=== PATIENT | male | born 1935 | race Caucasian/White ===

== ENCOUNTER 2017-08-02 22:25 | Emergency (ER) | payer MEDICARE, BC ==
[2017-08-02] MEDS ORDERED: Acetaminophen/HYDROcodone 325-5 MG Tab PO ONE ×2 (22:26)
[2017-08-02 22:31] VITALS: BP 140/95
[2017-08-02] MEDS ORDERED: Lidocaine 2% 100 MG/5 ML Syringe ONE (22:42)
--- NOTE | 2017-08-02 22:43 | EDM.PDOC ---
ED HPI GENERAL MEDICAL PROBLEM - General Chief Complaint: Genitourinary Problem Stated Complaint: voiding small amounts after catheter removed Time Seen by Provider: 08/02/17 22:37 - History of Present Illness INITIAL COMMENTS - FREE TEXT/NARRATIVE: Zurdo is an 82 year old male who presents to the ER with complaints of urinary retention. He reports he was seen in the clinic here last Wednesday after being unable to urinate. Multiple attempts were made at catheterization without success, so patient was sent via [facility] to [facility]. Records from [facility] are unobtainable at this time. Patient does not know what all was done in [facility]. He reports he "couldn't understand the doctors." He does report that he had continuous bladder irrigation going for a majority of his 5 day hospital stay. He reports that he saw Dr. Lambert (urology) in [place] earlier today. He reports he did cystoscopy and removed his catheter. He reports he did not do a voiding trial. He reports Dr. Lambert "didn't really tell him what was going on" just told him to follow up on August 28. 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 Patient does report surgery "a number of years ago" where they "removed part of his prostate. He reports that since about 11 am today, he has voided "very small amounts." He does complain of discomfort in his pelvic area. He reports the urge to void, but inability to pass urine. He does report he did pass a few clots earlier today following catheter removal. Denies any fever, chills, abdominal pain, constipation, diarrhea, flank pain. Onset: Today Onset Date: 08/02/17 Onset Time: 11:00 Duration: Getting Worse Location: Reports: Pelvis Quality: Reports: Pressure Severity: Moderate Improves with: Reports: None Associated Symptoms: Reports: Other (inability to urinate). Denies: Confusion, Chest Pain, Cough, cough w sputum, Diaphoresis, Fever/Chills, Headaches, Loss of Appetite, Malaise, Nausea/Vomiting, Rash, Seizure, Shortness of Breath, Syncope, Weakness Bladder Pain Score (Numeric/FACES): 3 - Related Data Allergies Allergy/AdvReac Type Severity Reaction Status Date / Time No Known Allergies Allergy Verified 09/10/15 15:49 Home Meds: Home Meds Aspirin [Halfprin] 81 mg PO DAILY 09/10/15 [History] Metoprolol Succinate [Toprol XL] 25 mg PO DAILY 09/10/15 [History] Moexipril/Hydrochlorothiazide [Moexipril-HCTZ 7.5-12.5 MG] 7.5 mg PO DAILY 09/10 [History] Rosuvastatin [Crestor] 5 mg PO DAILY 09/10/15 [History] Triamterene/Hydrochlorothiazid [Triamterene-HCTZ 37.5-25 MG] 37.5 mg PO DAILY [History] Warfarin [Coumadin] 5 mg PO ASDIRECTED 09/10/15 [History] amLODIPine Besylate [Amlodipine Besylate] 10 mg PO DAILY 09/10/15 [History] Allopurinol [Zyloprim] 100 mg PO DAILY 08/02/17 [History] Aspirin 81 mg PO DAILY 08/02/17 [History] Cholecalciferol (Vitamin D3) [Vitamin D3] 5,000 unit PO DAILY 08/02/17 [History] Ciprofloxacin [Ciprofloxacin HCl] 250 mg PO BID 08/02/17 [History] Colchicine 0.6 mg PO ASDIRECTED 08/02/17 [History] Finasteride [Proscar] 5 mg PO DAILY 08/02/17 [History] Metoprolol Succinate [Toprol XL] 25 mg PO DAILY 08/02/17 [History] Polyethylene Glycol 3350 [MiraLAX] 1 packet PO DAILY PRN 08/02/17 [History] Rosuvastatin Calcium 5 mg PO DAILY 08/02/17 [History] Tamsulosin [Flomax] 0.4 mg PO BEDTIME 08/02/17 [History] Urea [Urea 20% Crm] 1 applic TOP DAILY 08/02/17 [History] Zolpidem [Ambien] 10 mg PO BEDTIME PRN 08/02/17 [History] ED ROS GENERAL - Review of Systems Review Of Systems: ROS reveals no pertinent complaints other than HPI. Constitutional: Denies: Fever, Chills, Weakness, Fatigue, Decreased Appetite HEENT: Reports: No Symptoms Respiratory: Reports: No Symptoms Cardiovascular: Reports: No Symptoms : Reports: Dysuria, Hematuria, Pain, Urinary Retention. Denies: Discharge, Flank Pain, Frequency, Incontinence, Urgency Musculoskeletal: Reports: No Symptoms Skin: Reports: No Symptoms Neurological: Reports: No Symptoms ED EXAM, RENAL/ - Physical Exam Exam: See Below Exam Limited By: No Limitations General Appearance: Alert, WD/WN, Moderate Distress Head: Atraumatic, Normocephalic Neck: Normal Inspection, Supple, Non-Tender, Full Range of Motion Respiratory/Chest: No Respiratory Distress, Lungs Clear, Normal Breath Sounds, No Accessory Muscle Use, Chest Non-Tender Cardiovascular: Normal Peripheral Pulses, Regular Rate, Rhythm, No Edema, No Gallop, No JVD, No Murmur, No Rub GI/Abdominal: Normal Bowel Sounds, Soft, Tender (lower abdomen) (Male) Exam: Normal Inspection, Suprapubic Fullness, Other (bladder distended ). No: Scrotal Swelling, Scrotum Tenderness (L), Scrotum Tenderness (R) Back Exam: Normal Inspection, Full Range of Motion. No: CVA Tenderness (L), CVA Tenderness (R) Extremities: Normal Inspection, Normal Range of Motion, Non-Tender, Normal Capillary Refill, No Pedal Edema Neurological: Alert, Oriented, CN II-XII Intact, Normal Cognition, Normal Gait, Normal Reflexes, No Motor/Sensory Deficits Psychiatric: Anxious Skin Exam: Warm, Dry, Intact, Normal Color, No Rash Course - Vital Signs Last Recorded V/S: Last Vital Signs Temp 98.0 F 08/02/17 22:26 Pulse 95 08/02/17 22:26 Resp 20 08/02/17 22:26 BP 140/95 H 08/02/17 22:26 Pulse Ox 99 08/02/17 22:26 - Orders/Labs/Meds Orders: Active Orders 24 hr Category Date Time Status Insert Jara Catheter [Insert Urinary Catheter] [OM.PC] Care 08/02/17 23:15 Ordered Q24H Urinary Catheter Assessment [RC] ASDIRECTED Care 08/02/17 23:26 Active Meds: Medications Discontinued Medications Generic Name Dose Route Start Last Admin Trade Name Emre PRN Reason Stop Dose Admin Hydrocodone Bitart/Acetaminophen 1 packet 08/02/17 23:52 08/02/17 23:54 Take Home: Acetaminophen/Hydrocod, 2 Tab Pack PO 08/02/17 23:53 1 packet ONETIME ONE Administration Hydrocodone Bitart/Acetaminophen 1 tab 08/02/17 22:26 Gipsy 325-5 Mg PO 08/02/17 22:27 .STK-MED ONE Fentanyl 50 mcg 08/02/17 22:52 08/02/17 22:59 Sublimaze IM 08/02/17 22:53 50 mcg ONETIME ONE Administration Lidocaine HCl Confirm 08/02/17 22:42 08/02/17 23:02 Xylocaine 2% Administered 08/02/17 22:43 Not Given Dose 100 mg .ROUTE .STK-MED ONE Lidocaine HCl 5 ml 08/02/17 22:52 08/02/17 23:01 Xylocaine 2% Jelly TOP 08/02/17 22:53 1 applic ONETIME ONE Administration Lidocaine HCl Confirm 08/02/17 22:46 08/02/17 23:02 Xylocaine 2% Jelly Administered 08/02/17 22:47 Not Given Dose 5 ml .ROUTE .STK-MED ONE - Re-Assessments/Exams Free Text/Narrative Re-Assessment/Exam: Patient medicated with 50 mcg fentanyl. Lidocane inserted into urethra. Attempted to place 22 F coude catheter without success. Unable to get urine. Discussed that likely needed urology speciality as before. Discussed the emergent need to empty bladder. [place] [facility] [place] if [place] had urologist rehabilitation therapist. Spoke with ER, who reported they do have urologist rehabilitation therapist, but patient would have to be seen in their ER prior to calling in urologst. I feel this would be our best option as it is within closest proximity. Patient's nephew is present with patient who reports he will drive him there. Discussed risk vs benefits of transfer via private vehicle with patient and nephew. Risks of transfer include vehicle crash, worsening of condition enroute, to include bladder rupture. Benefits of transfer include specialized urology care. Risks of nontransfer include worsening of condition, including bladder rupture. Benefits of transfer include familiar environment, close to home. Patient and nephew verbalized understanding. Will send patient [place] [facility] [place]. Called [facility] and updated that patient would be coming. At time of departure, patient in stable condition. Pain medication administered prior to departure. Pain well controlled. VSS. PLEASE SEE NURSES DOCUMENTATION FOR PMH, SH, FH. Departure - Departure Time of Disposition: 23:40 Disposition: DC/Tfer to [facility] Clinical Impression: BPH with urinary obstruction, Gross hematuria - Discharge Information Instructions: Benign Prostatic Hyperplasia Referrals: Amol Cee MD [Primary Care Provider] - Forms: ED Department Discharge Additional Instructions: Patient will go to [facility], who have a urologist rehabilitation therapist Spoke with ER and notified that patient would be coming Patient needs emergent catheterization - Problem List & Annotations (1) BPH with urinary obstruction SNOMED Code(s): 594017934 Code(s): N40.1 - BENIGN PROSTATIC HYPERPLASIA WITH LOWER URINARY TRACT SYMP; N13.8 - OTHER OBSTRUCTIVE AND REFLUX UROPATHY Status: Acute (2) Gross hematuria SNOMED Code(s): 314814958 Code(s): R31.0 - GROSS HEMATURIA Status: Acute - My Orders Last 24 Hours: My Active Orders 08/02/17 23:15 Insert Jara Catheter [Insert Urinary Catheter] [OM.PC] Q24H 08/02/17 23:26 Urinary Catheter Assessment [RC] ASDIRECTED - Assessment/Plan Last 24 Hours: My Active Orders 08/02/17 23:15 Insert Jara Catheter [Insert Urinary Catheter] [OM.PC] Q24H 08/02/17 23:26 Urinary Catheter Assessment [RC] ASDIRECTED
[2017-08-02] MEDS ORDERED: Lidocaine 2% Jelly 5 ML Tube ONE (22:46)
[2017-08-02] MEDS ORDERED: Lidocaine 2% Jelly 5 ML Tube TOP ONE (22:52)
[2017-08-02] MEDS ORDERED: fentaNYL 100 MCG/2 ML SDV IM ONE (22:52)
[2017-08-02] MEDS ORDERED: Take Home: Acetaminophen/HYDROcodone 325-5 MG, 2 Tab Pack PO ONE (23:52)
== END 2017-08-03 00:02 | disposition critical access hospital (66) ==
LOC: CC.ED 22:25 → EDBD 22:25 → MERGE 22:25 → CC.ED 08-03 00:02
DX: N40.1 Benign prostatic hyperplasia with lower urinary tract symptoms (principal); N13.8 Other obstructive and reflux uropathy; R31.0 Gross hematuria; Z79.82 Long term (current) use of aspirin; Z79.899 Other long term (current) drug therapy; Z79.01 Long term (current) use of anticoagulants
CPT/HCPCS: 51702; 96372; 99284; A9270; J3010

== ENCOUNTER 2017-11-02 21:10 | Emergency (ER) | payer MEDICARE, BC ==
[2017-11-02 21:28] VITALS: BP 140/96
--- NOTE | 2017-11-02 22:08 | EDM.PDOC ---
ED HPI GENERAL MEDICAL PROBLEM - General Chief Complaint: Genitourinary Problem Stated Complaint: catheter not working Time Seen by Provider: 11/02/17 21:35 Source of Information: Reports: Patient History Limitations: Reports: No Limitations - History of Present Illness INITIAL COMMENTS - FREE TEXT/NARRATIVE: Zurdo is an 82 yo male who presents to the ER via private vehicle with concerns of his urinary catheter not working. He states he was seen by his urologist at the [facility] with concerns of unable to void. Emergency room staff attempted to put the catheter in a couple times last night without any success. They ended up calling in his urologist who ended up placing it last night. Rui states he was fine through out the night up until this morning. Admits around 8 oclock he started to feels he needed to go and was unable to in the catheter. He felt the tube had got pulled out possibly thru the night and he pushed it back in. States he then started to get urine in the catheter bag. States he did fine up until this evening again and was unable to get any urine in the catheter bag. Started to get a lot of discomfort and felt he better come in to the ER. Upon arrival to the ER tonight his clothes became soiled in urine as it was leaking around the catheter with nothing in the bag. Nursing staff initially flushed the catheter and she states clear yellow urine returned. She stated she continued to flush and no longer any urine would return. It started leaking around the catheter again. She stated she then deflated the balloon and removed it with no clots or urine. She states he stood at the bedside and was unable to void on his own roughly 150ml of bloody urine with clot. He did have another episode of voiding bloody urine, again roughly 150ml's. He denies any discomfort or pressure upon my arrival. States he is feeling a lot better. Bladder Pain Score (Numeric/FACES): 3 - Related Data Allergies Allergy/AdvReac Type Severity Reaction Status Date / Time No Known Allergies Allergy Verified 11/02/17 21:29 Home Meds: Home Meds Aspirin [Halfprin] 81 mg PO DAILY 09/10/15 [History] Rosuvastatin [Crestor] 5 mg PO DAILY 09/10/15 [History] Triamterene/Hydrochlorothiazid [Triamterene-HCTZ 37.5-25 MG] 37.5 mg PO DAILY [History] Warfarin [Coumadin] 2.5 mg PO ASDIRECTED 09/10/15 [History] Allopurinol [Zyloprim] 100 mg PO DAILY 08/02/17 [History] Cholecalciferol (Vitamin D3) [Vitamin D3] 5,000 unit PO DAILY 08/02/17 [History] Colchicine 0.6 mg PO ASDIRECTED 08/02/17 [History] Metoprolol Succinate [Toprol XL] 50 mg PO DAILY 08/02/17 [History] Polyethylene Glycol 3350 [MiraLAX] 1 packet PO DAILY PRN 08/02/17 [History] Urea [Urea 20% Crm] 1 applic TOP DAILY 08/02/17 [History] Zolpidem [Ambien] 10 mg PO BEDTIME PRN 08/02/17 [History] Past Medical History Cardiovascular History: Reports: Afib, CAD, High Cholesterol, Hypertension Genitourinary History: Reports: BPH, Other (See Below), Retention, Urinary Other Genitourinary History: hematuria Musculoskeletal History: Reports: Arthritis, Gout, Other (See Below), Osteoarthritis Other Musculoskeletal History: bilat bunions Psychiatric History: Reports: Other (See Below) Other Psychiatric History: insomnia - Past Surgical History Male Surgical History: Reports: Prostatectomy Social & Family History - Family History Family Medical History: Noncontributory - Tobacco Use Smoking Status *Q: Never Smoker - Caffeine Use Caffeine Use: Reports: Coffee - Alcohol Use Days Per Week of Alcohol Use: 7 Number of Drinks Per Day: 2 Total Drinks Per Week: 14 - Recreational Drug Use Recreational Drug Use: No ED ROS GENERAL - Review of Systems Review Of Systems: ROS reveals no pertinent complaints other than HPI. Constitutional: Denies: Fever, Chills HEENT: Reports: No Symptoms Respiratory: Reports: No Symptoms Cardiovascular: Reports: No Symptoms GI/Abdominal: Reports: No Symptoms : Reports: Hematuria, Pain, Urinary Retention ED EXAM, RENAL/ - Physical Exam Exam: See Below Exam Limited By: No Limitations General Appearance: Alert, No Apparent Distress Head: Atraumatic, Normocephalic Neck: Normal Inspection, Supple Respiratory/Chest: No Respiratory Distress, Lungs Clear, Normal Breath Sounds, No Accessory Muscle Use Cardiovascular: No Murmur, Irregularly Irregular GI/Abdominal: Normal Bowel Sounds, Soft, Non-Tender, No Organomegaly, No Distention, No Mass Extremities: Normal Inspection, No Pedal Edema Neurological: Alert, Oriented, Normal Cognition, No Motor/Sensory Deficits Psychiatric: Normal Affect, Normal Mood Skin Exam: Warm, Dry, Intact, Normal Color, No Rash Course - Vital Signs Last Recorded V/S: Last Vital Signs Temp 96.0 F 11/02/17 21:20 Pulse 78 11/02/17 21:20 Resp 16 11/02/17 21:20 BP 140/96 H 11/02/17 21:20 Pulse Ox 95 11/02/17 21:20 - Orders/Labs/Meds Labs: Laboratory Tests 11/02/17 11/02/17 11/02/17 Range/Units 21:22 21:22 21:22 WBC 8.8 (5.0-10.0) 10^3/uL RBC 4.87 (4.50-6.00) 10^6/uL Hgb 12.4 L (14.0-18.0) g/dL Hct 38.8 L (40.0-54.0) % MCV 79.7 L (82.0-94.0) fL MCH 25.5 L (27.0-32.0) pg MCHC 32.0 L (33.0-38.0) g/dL RDW Coeff of Bola 18.0 H (11.0-15.0) % Plt Count 257 (150-400) 10^3/uL Neut % (Auto) 79.6 (35-85) % Lymph % (Auto) 12.3 (10-55) % Yancey % (Auto) 7.4 (0-16) % Eos % (Auto) 0.5 (0-5) % Baso % (Auto) 0.2 (0-3) % Neut # (Auto) 7.04 H (1.80-7.00) 10^3/uL Lymph # (Auto) 1.09 (1.00-4.80) 10^3/uL Yancey # (Auto) 0.65 (0.00-0.80) 10^3/uL Eos # (Auto) 0.04 (0.00-0.45) 10^3/uL Baso # (Auto) 0.02 10^3/uL PT 11.2 (9.7-12.3) SEC INR 1.08 (0.92-1.18) Sodium 134 L (136-145) mEq/L Potassium 3.6 (3.5-5.0) mEq/L Chloride 98 (98-106) mEq/L Carbon Dioxide 24 (21-32) mmol/L BUN 29 H (7-18) mg/dL Creatinine 1.5 H (0.7-1.3) mg/dL Est Cr Clr Drug Dosing 37.85 mL/min Estimated GFR (MDRD) 45 L (>=60) mL/min Glucose 113 H (75-99) mg/dL Calcium 9.1 (8.4-10.1) mg/dL Departure - Departure Time of Disposition: 22:09 Disposition: Home, Self-Care 01 Clinical Impression: Urinary retention, Gross hematuria - Discharge Information Instructions: Acute Urinary Retention, Male, [id number], Hematuria, Adult Forms: ED Department Discharge Additional Instructions: Consulted with Dr. Karo barros. 1) If able to continue to void, may go home and a fair amount of water tonight. 2) Advised seeing him in clinic at 8:00 tomorrow morning at [facility]. 3) Recommended if increased pressure/retention/discomfort anytime tonight, he is to go directly to [facility] emergency room and he will come in to evaluate. 4) Return to ER if any concerns at all. - Problem List & Annotations (1) Gross hematuria SNOMED Code(s): 096568071 Code(s): R31.0 - GROSS HEMATURIA Status: Acute Current Visit: Yes (2) Urinary retention SNOMED Code(s): 730425049 Code(s): R33.9 - RETENTION OF URINE, UNSPECIFIED Status: Acute Current Visit: Yes - Problem List Review Problem List Initiated/Reviewed/Updated: Yes - Assessment/Plan Plan: consulted fiorella with Dr. Huddleston in regards to Rui's condition. He advised that Rui may go home tonight if he has no pressure presently. States he is to push fluids tonight and see him in clinic tomorrow morning at 8:00am at [facility]. If he has any increased discomfort tonight and unable to void he is to go directly to [facility] emergency room and Dr. Huddleston will come in to evaluate and place a catheter.
[2017-11-02] MEDS ORDERED: Take Home: Acetaminophen/HYDROcodone 325-5 MG, 2 Tab Pack PO ONE (22:19)
== END 2017-11-02 22:40 | disposition home or self-care (01) ==
LOC: CC.ED 21:10
DX: R33.9 Retention of urine, unspecified (principal); R31.0 Gross hematuria; I10 Essential (primary) hypertension; E78.00 Pure hypercholesterolemia, unspecified; Z79.82 Long term (current) use of aspirin; Z79.899 Other long term (current) drug therapy
CPT/HCPCS: 36415; 80048; 85025; 85610; 99284

== ENCOUNTER 2019-04-19 13:17 | Inpatient (IN) | payer MEDICARE, BC ==
[2019-04-19] MEDS ORDERED: Sodium Chloride 0.9% 10 ML Syringe FLUSH PRN (17:11)
[2019-04-19] MEDS ORDERED: Acetaminophen/HYDROcodone 325-5 MG Tab PO PRN (17:24)
[2019-04-19] MEDS ORDERED: Zolpidem 5 MG Tab PO PRN (17:48)
[2019-04-19] MEDS: Pantoprazole 40 MG Vial IVPUSH SCH (18:06)
[2019-04-19] MEDS ORDERED: Bisacodyl 5 MG Tab PO ONE (20:00)
[2019-04-20] MEDS: Pantoprazole 40 MG Vial IVPUSH SCH (06:40)
[2019-04-20] MEDS ORDERED: Hydrochlorothiazide/Triamterene 25-37.5 MG Cap PO SCH (08:00)
[2019-04-20] MEDS ORDERED: Metoprolol Succinate 25 MG Tab.ER PO SCH (08:00)
[2019-04-20 08:20] VITALS: BP 99/67
[2019-04-20] MEDS ORDERED: Acetaminophen/HYDROcodone 325-5 MG Tab PO PRN (08:48)
[2019-04-20] MEDS ORDERED: Nicotine 14 MG/24 Hr Patch TRDERM ONE (08:56)
[2019-04-20] MEDS ORDERED: Polyethylene Glycol 3350 Powder 238 GM Bot PO ONE (16:00)
[2019-04-20] MEDS ORDERED: Bisacodyl 5 MG Tab PO ONE (17:00)
--- NOTE | 2019-04-20 20:58 | PCM.DCSUM1 ---
Discharge Summary - Hospital Course Free Text/Narrative:: Patient admitted from clinic per Rohith Egan with anemia. He presented to clinic for refill of meds. Complained of increasing weakness and shortness of breath that has gradually progressed over the last month or so. Did see cardiology in February, due for upcoming follow up in April. Was advised to obtain echocardiogram prior to appointment. Labs done, noted hemoglobin of 6.2. Admitted and started on IV Protonix. Type and screen for 2 units PRBC. Plan to proceed with EGD/colonoscopy of Wednesday. Diagnosis: Stroke: No Modified Galileo Scale: No Symptoms at All Modified Wibaux Scale Score: 0 - Discharge Data Discharge Date: 04/20/19 Discharge Disposition: DC/Tfer to Acute Hospital 02 Condition: Fair - Patient Summary/Data Complications: unable to give blood due to antibodies Consults: Consultations 04/19/19 17:11 Consult to Physician [CONS] Routine Hospital Course: Patient stable this am, complains of feeling weak, dizzy when up. Is still having back pain. Was lifting on a tub recently, questions if caused issues with his back. Comfortable if lying still. [place] does help. Denies any chest pain, no abdominal discomfort. No discomfort with clear liquids this am. Relates has history of PUD. When suffering from that, states stools were black. Has not noted that as of yet. Type and screen was done. Patient has notable antibodies, needs further crossmatch. Unable to obtain these and give today and hemoglobin has dropped to 5.7. Consulted with Dr. Canales, hospitalist at [facility] due to complication. Did agree to accept the patient in transfer to obtain further work up for the anemia , crossmatch for blood transfusions. - Patient Instructions Diet: Usual Diet as Tolerated Activity: As Tolerated - Discharge Plan *PRESCRIPTION DRUG MONITORING PROGRAM REVIEWED*: No *COPY OF PRESCRIPTION DRUG MONITORING REPORT IN PATIENT HOWARD: No Home Medications: Home Meds Aspirin [Halfprin] 81 mg PO DAILY 09/10/15 [History] Rosuvastatin [Crestor] 5 mg PO DAILY 09/10/15 [History] Triamterene/Hydrochlorothiazid [Triamterene-HCTZ 37.5-25 MG] 37.5 mg PO DAILY [History] Warfarin [Coumadin] 2.5 mg PO ASDIRECTED 09/10/15 [History] Allopurinol [Zyloprim] 100 mg PO ASDIRECTED 08/02/17 [History] Cholecalciferol (Vitamin D3) [Vitamin D3] 2,000 unit PO DAILY 08/02/17 [History] Metoprolol Succinate [Toprol XL] 50 mg PO DAILY 08/02/17 [History] Zolpidem [Ambien] 10 mg PO BEDTIME PRN 08/02/17 [History] Hydrocodone/Acetaminophen [Hydrocodon-Acetaminophen 5-325] 1 - 2 tab PO Q6H PRN 04/19/19 [History] - Discharge Summary/Plan Comment DC Time >30 min.: Yes Discharge Summary/Plan Comment: Transfer BLS to [facility] for further work up, blood transfusion. - General Info Date of Service: 04/20/19 Admission Dx/Problem (Free Text: anemia Functional Status: Reports: Pain Controlled, Tolerating Diet, Ambulating, Urinating - Review of Systems General: Reports: Weakness, Fatigue HEENT: Reports: No Symptoms Pulmonary: Reports: Shortness of Breath Cardiovascular: Reports: Lightheadedness. Denies: Chest Pain, Edema Gastrointestinal: Denies: Abdominal Pain, Hematochezia, Melena, Nausea, Vomiting Genitourinary: Reports: No Symptoms Musculoskeletal: Reports: No Symptoms Skin: Reports: No Symptoms Neurological: Reports: Weakness - Patient Data Vitals - Most Recent: Last Vital Signs Temp 97 F 04/20/19 08:00 Pulse 84 04/20/19 08:00 Resp 18 04/20/19 08:00 BP 99/67 04/20/19 08:00 Pulse Ox 99 04/20/19 08:00 Weight - Most Recent: 174 lb 11.2 oz Lab Results - Last 24 hrs: Laboratory Results - last 24 hr 04/19/19 04/20/19 04/20/19 Range/Units 14:45 06:50 06:50 WBC 5.1 (5.0-10.0) 10^3/uL RBC 2.22 L (4.50-6.00) 10^6/uL Hgb 5.7 L* (14.0-18.0) g/dL Hct 18.5 L* (40.0-54.0) % MCV 83.3 (82.0-94.0) fL MCH 25.7 L (27.0-32.0) pg MCHC 30.8 L (33.0-38.0) g/dL RDW Coeff of Bola 15.0 (11.0-15.0) % Plt Count 242 (150-400) 10^3/uL Neut % (Auto) 53.6 (35-85) % Lymph % (Auto) 27.7 (10-55) % Mccone % (Auto) 13.6 (0-16) % Eos % (Auto) 4.5 (0-5) % Baso % (Auto) 0.6 (0-3) % Neut # (Auto) 2.71 (1.80-7.00) 10^3/uL Lymph # (Auto) 1.40 (1.00-4.80) 10^3/uL Mccone # (Auto) 0.69 (0.00-0.80) 10^3/uL Eos # (Auto) 0.23 (0.00-0.45) 10^3/uL Baso # (Auto) 0.03 10^3/uL PT (9.7-12.3) SEC INR (0.92-1.18) Sodium 135 L (136-145) mEq/L Potassium 3.4 L (3.5-5.0) mEq/L Chloride 99 (98-106) mEq/L Carbon Dioxide 25 (21-32) mmol/L BUN 29 H (7-18) mg/dL Creatinine 1.7 H (0.7-1.3) mg/dL Est Cr Clr Drug Dosing 30.74 mL/min Estimated GFR (MDRD) 38 L (>=60) mL/min Glucose 94 (75-99) mg/dL Calcium 8.1 L (8.4-10.1) mg/dL Blood Type B POSITIVE Gel Antibody Screen Positive Antibody Identification Cancelled Crossmatch See Detail 04/20/19 Range/Units 06:50 WBC (5.0-10.0) 10^3/uL RBC (4.50-6.00) 10^6/uL Hgb (14.0-18.0) g/dL Hct (40.0-54.0) % MCV (82.0-94.0) fL MCH (27.0-32.0) pg MCHC (33.0-38.0) g/dL RDW Coeff of Bola (11.0-15.0) % Plt Count (150-400) 10^3/uL Neut % (Auto) (35-85) % Lymph % (Auto) (10-55) % Mccone % (Auto) (0-16) % Eos % (Auto) (0-5) % Baso % (Auto) (0-3) % Neut # (Auto) (1.80-7.00) 10^3/uL Lymph # (Auto) (1.00-4.80) 10^3/uL Mccone # (Auto) (0.00-0.80) 10^3/uL Eos # (Auto) (0.00-0.45) 10^3/uL Baso # (Auto) 10^3/uL PT 29.4 H (9.7-12.3) SEC INR 3.04 H (0.92-1.18) Sodium (136-145) mEq/L Potassium (3.5-5.0) mEq/L Chloride (98-106) mEq/L Carbon Dioxide (21-32) mmol/L BUN (7-18) mg/dL Creatinine (0.7-1.3) mg/dL Est Cr Clr Drug Dosing mL/min Estimated GFR (MDRD) (>=60) mL/min Glucose (75-99) mg/dL Calcium (8.4-10.1) mg/dL Blood Type Gel Antibody Screen Antibody Identification Crossmatch Med Orders - Current: Current Medications Discontinued Medications Hydrocodone Bitart/Acetaminophen ([place] 325-5 Mg) 1 tab PO Q6H PRN PRN Reason: Pain Last Admin: 04/20/19 02:14 Dose: 1 tab Hydrocodone Bitart/Acetaminophen ([place] 325-5 Mg) 1 - 2 tab PO Q6H PRN PRN Reason: Pain Last Admin: 04/20/19 09:05 Dose: 2 tab Allopurinol (Zyloprim) 100 mg PO MoFr@0900 [facility] Bisacodyl (Dulcolax) 10 mg PO ONETIME ONE Stop: 04/19/19 20:01 Last Admin: 04/19/19 19:31 Dose: 10 mg Bisacodyl (Dulcolax) 10 mg PO ONETIME ONE Stop: 04/20/19 17:01 Metoprolol Succinate (Toprol Xl) 50 mg PO DAILY [facility] Last Admin: 04/20/19 09:03 Dose: Not Given Nicotine (Habitrol) 14 mg TRDERM ONETIME ONE Stop: 04/20/19 08:57 Last Admin: 04/20/19 09:03 Dose: 14 mg Pantoprazole Sodium (Protonix Iv) 40 mg IVPUSH Q12H [facility] Last Admin: 04/20/19 06:40 Dose: 40 mg Phytonadione (Aquamephyton) 5 mg SUBCUT ONETIME ONE Stop: 04/20/19 08:47 Last Admin: 04/20/19 09:04 Dose: 5 mg Polyethylene Glycol (Miralax) 238 gm PO 1600 ONE Stop: 04/20/19 16:01 Sodium Chloride (Saline Flush) 10 ml FLUSH ASDIRECTED PRN PRN Reason: Keep Vein Open Triamterene/HCTZ (Dyazide 25-37.5 Mg) 1 each PO DAILY [facility] Last Admin: 04/20/19 09:04 Dose: Not Given Zolpidem Tartrate (Ambien) 10 mg PO BEDTIME PRN PRN Reason: INSOMNIA - Exam General: Reports: Alert, Oriented HEENT: Reports: Mucous Membr. Moist/[place] Neck: Reports: Supple Lungs: Reports: Clear to Auscultation, Normal Respiratory Effort Cardiovascular: Reports: Regular Rate, Regular Rhythm GI/Abdominal Exam: Normal Bowel Sounds, Soft, Non-Tender Extremities: Normal Inspection, No Pedal Edema Skin: Reports: Warm, Dry Neurological: Reports: No New Focal Deficit
[2019-04-21] MEDS ORDERED: Allopurinol 100 MG Tab PO SCH (09:00)
== END 2019-04-20 13:20 | DRG 812 ==
LOC: CC.MS 13:17 → CC.FCMC 13:17 → UNDOADMIN 15:47 → CC.MS 15:47 → OBSVTOIN 15:47 → INTOOBSV 15:47 → CC.MS 16:59
PROVIDERS: ADMIT Physician Assistant Medical; ATTEND Family Medicine
DX: D64.9 Anemia, unspecified (principal); M10.9 Gout, unspecified; G47.00 Insomnia, unspecified; K59.00 Constipation, unspecified; E55.9 Vitamin D deficiency, unspecified; Z79.82 Long term (current) use of aspirin; Z79.899 Other long term (current) drug therapy; Z98.890 Other specified postprocedural states; Z98.49 Cataract extraction status, unspecified eye; Z95.1 Presence of aortocoronary bypass graft; Z90.49 Acquired absence of other specified parts of digestive tract; Z87.891 Personal history of nicotine dependence; Z79.01 Long term (current) use of anticoagulants
CPT/HCPCS: 36415; 80048; 85025; 85610; 86850; 86870; 86900; 86901; 86920; 86922; A9270-GY; C9113; J3430

== ENCOUNTER 2021-10-26 20:26 | Emergency (ER) | payer MEDICARE, BC ==
[2021-10-26] MEDS: Oxymetazoline 0.05% Nasal Spray 30 ML Bottle NAS ONE (20:40)
[2021-10-26 21:06] VITALS: PULSE 67
[2021-10-26 21:08] VITALS: BP 140/80
== END 2021-10-26 21:20 | disposition home or self-care (01) ==
LOC: CC.ED 20:26
DX: R04.0 Epistaxis (principal); I48.91 Unspecified atrial fibrillation; I10 Essential (primary) hypertension; I25.10 Atherosclerotic heart disease of native coronary artery without angina pectoris; M19.90 Unspecified osteoarthritis, unspecified site; Z79.82 Long term (current) use of aspirin; Z79.899 Other long term (current) drug therapy
CPT/HCPCS: 30901; 99283-25; 99284

== ENCOUNTER 2021-11-07 18:50 | Emergency (ER) | payer MEDICARE, BC ==
[2021-11-07 19:27] VITALS: BP 171/91; PULSE 97
[2021-11-07] MEDS: Oxymetazoline 0.05% Nasal Spray 30 ML Bottle NAS ONE (20:09)
[2021-11-07] MEDS: Silver Nitrate Applicator Each TOP ONE (20:14)
== END 2021-11-07 20:15 | disposition home or self-care (01) ==
LOC: CC.ED 18:50
DX: R04.0 Epistaxis (principal); I48.91 Unspecified atrial fibrillation; I25.10 Atherosclerotic heart disease of native coronary artery without angina pectoris; E78.00 Pure hypercholesterolemia, unspecified; I10 Essential (primary) hypertension; N40.0 Benign prostatic hyperplasia without lower urinary tract symptoms; M10.9 Gout, unspecified; Z79.82 Long term (current) use of aspirin; Z79.01 Long term (current) use of anticoagulants; Z79.899 Other long term (current) drug therapy
CPT/HCPCS: 30901; 36415; 85025; 85610; 99283